=== PATIENT | male | born 1965 | race African-American/Black ===

== ENCOUNTER 2019-07-25 09:17 | Inpatient (IN) | payer MEDICARE, MEDICAID ==
[~2019-07-25] VITALS: Ht 172.7 cm; Wt 73.0 kg
[2019-07-25] MEDS ORDERED: METF-960 PO (09:24)
[2019-07-25] MEDS ORDERED: CARV6 PO (09:24)
[2019-07-25] MEDS ORDERED: LOSA-30 PO (09:24)
[2019-07-25] MEDS ORDERED: VANCOMYCIN HCL 1 GM/D5% WATER 200 ML IV ONE (10:15)
[2019-07-25] MEDS: PIPERACILLIN/TAZO 3.375 GM/D5W 50 ML IV SCH ×3 (10:41→22:37)
[2019-07-25 11:04] LABS: ANION GAP 8 mmol/L (8-16); CALCIUM, TOTAL 8.9 mg/dL (8.8-10.5); CARBON DIOXIDE 28 mmol/L (22-29); CHLORIDE 108 mmol/L (98-107); CREATININE 1.35 mg/dL (0.60-1.30); GLOMERULAR FILTR. RATE CALC > 60 mL/min (>60); GLUCOSE,RANDOM 119 mg/dL (70-110); POTASSIUM 3.6 mmol/L (3.5-5.1); SODIUM SERUM 144 mmol/L (136-145); UREA NITROGEN, BLOOD 16 mg/dL (7-18)
[2019-07-25 11:09] LABS: ALANINE AMINOTRANSFERASE 14 U/L (12-78); ALKALINE PHOSPHATASE 103 U/L (46-116); ASPARTATE AMINOTRANSFERASE 13 U/L (15-37); BILIRUBIN,TOTAL 0.3 mg/dL (0.1-1.0); TOTAL PROTEIN, SERUM 8.4 g/dL (6.4-8.2)
[2019-07-25 11:20] LABS: BASOPHILS % (AUTO) 0.5 % (0.0-2.0); EOSINOPHILS % (AUTO) 4.8 % (1.0-6.0); HEMATOCRIT 31.2 % (41-53); HEMOGLOBIN 10.1 g/dL (13.5-17.5); LYMPHOCYTES # (AUTO) 2.1 K/uL (1.0-4.8); LYMPHOCYTES % (AUTO) 22.7 % (22.0-44.0); MEAN CORPUSCULAR HEMOGLOBIN 28.2 pg (26.0-34.0); MEAN CORPUSCULAR HGB CONC 32.3 G/dL (31.0-37.0); MEAN CORPUSCULAR VOLUME 87 fL (80-100); MONOCYTES # (AUTO) 0.5 K/uL (0.1-1.0); MONOCYTES % (AUTO) 5.8 % (2.0-9.0); NEUTROPHILS % (AUTO) 66.2 % (40.0-70.0); PLATELET COUNT (AUTO) 407 K/uL (150-450); RED BLOOD CELL COUNT(AUTO) 3.57 MIL/uL (4.50-5.90); RED CELL DISTRIBUTION WIDTH 17.5 % (11.5-14.5)
[2019-07-25] MEDS ORDERED: LORazepam 2 MG/ML VIAL IVP ONE (12:30)
[2019-07-25] MEDS ORDERED: SODIUM CHLORIDE 0.9% 0 ML ONE (12:51)
[2019-07-25] MEDS ORDERED: IOVERSOL 320 MG/ML 100 ML VIAL ONE (12:51)
[2019-07-25] MEDS ORDERED: 0.9% SODIUM CHLORIDE 10 ML SYRINGE IVP PRN (13:45)
[2019-07-25] MEDS ORDERED: ONDANSETRON HCL 4 MG/2 ML VIAL IVP PRN ×2 (13:45)
[2019-07-25] MEDS ORDERED: ACETAMINOPHEN 325 MG TABLET PO PRN ×2 (13:45)
[2019-07-25 15:57] VITALS: BP 120/81
[2019-07-25] MEDS ORDERED: DEXTROSE 50%-WATER 25 GM/50 ML SYRINGE IVP PRN (17:45)
[2019-07-25] MEDS ORDERED: POTASSIUM CHLORIDE 20 MEQ ER TABLET PO ONE (17:45)
[2019-07-25 17:55] LABS: GLUCOMETER DEV NAME(LOC) 4E.2; GLUCOSE,POINT OF CARE 80 MG/DL (70-110)
[2019-07-25] MEDS: SODIUM CHLORIDE 0.45% 1,000 ML IV SCH (18:11)
[2019-07-25 18:28] VITALS: BP 120/81
[2019-07-25 19:25] VITALS: BP 104/63
[2019-07-25] MEDS: CARVEDILOL 6.25 MG TABLET PO SCH (21:09)
[2019-07-25] MEDS: INSULIN LISPRO 100 UNITS/ML SQ PRN (21:16)
[2019-07-25 22:08] LABS: GLUCOMETER DEV NAME(LOC) 6N.1; GLUCOSE,POINT OF CARE 159 MG/DL (70-110)
[2019-07-25 23:41] VITALS: BP 92/64
[2019-07-26 05:35] VITALS: BP 98/67
[2019-07-26] MEDS: SODIUM CHLORIDE 0.45% 1,000 ML IV SCH ×3 (05:59→21:54)
[2019-07-26 07:41] LABS: BASOPHILS % (AUTO) 0.7 % (0.0-2.0); EOSINOPHILS % (AUTO) 3.6 % (1.0-6.0); HEMATOCRIT 24.8 % (41-53); LYMPHOCYTES # (AUTO) 2.8 K/uL (1.0-4.8); LYMPHOCYTES % (AUTO) 36.5 % (22.0-44.0); MEAN CORPUSCULAR HEMOGLOBIN 27.8 pg (26.0-34.0); MEAN CORPUSCULAR HGB CONC 32.3 G/dL (31.0-37.0); MEAN CORPUSCULAR VOLUME 86 fL (80-100); MONOCYTES # (AUTO) 0.7 K/uL (0.1-1.0); MONOCYTES % (AUTO) 8.7 % (2.0-9.0); NEUTROPHILS # (AUTO) 3.9 K/uL (1.8-7.7); NEUTROPHILS % (AUTO) 50.5 % (40.0-70.0); PLATELET COUNT (AUTO) 316 K/uL (150-450); RED BLOOD CELL COUNT(AUTO) 2.87 MIL/uL (4.50-5.90); RED CELL DISTRIBUTION WIDTH 17.5 % (11.5-14.5)
[2019-07-26 07:52] LABS: ALBUMIN 1.6 g/dL (3.4-5.0); BILIRUBIN,TOTAL 0.3 mg/dL (0.1-1.0); CREATININE 2.08 mg/dL (0.60-1.30); POTASSIUM 4.3 mmol/L (3.5-5.1); TOTAL PROTEIN, SERUM 6.9 g/dL (6.4-8.2)
[2019-07-26] MEDS: CARVEDILOL 6.25 MG TABLET PO SCH ×2 (08:40→21:51)
[2019-07-26 08:52] VITALS: BP 100/64
[2019-07-26 11:37] LABS: GLUCOMETER DEV NAME(LOC) 6N.1; GLUCOSE,POINT OF CARE 86 MG/DL (70-110)
[2019-07-26 11:37] LABS: GLUCOMETER DEV NAME(LOC) 4E.2; GLUCOSE,POINT OF CARE 107 MG/DL (70-110)
[2019-07-26 12:00] VITALS: BP 98/65
[2019-07-26 17:47] VITALS: BP 113/73
[2019-07-26] MEDS: ALBUTEROL SULFATE 2.5 MG/0.5 ML NEB SOLUTION NEB PRN (17:47)
[2019-07-26 18:37] LABS: GLUCOMETER DEV NAME(LOC) 4E.2; GLUCOSE,POINT OF CARE 136 MG/DL (70-110)
[2019-07-26 19:00] VITALS: BP 110/69
[2019-07-26] MEDS: CefTRIAXone SODIUM 2 GM in DEXTROSE 5%-WATER 50 ML IV SCH (21:51)
[2019-07-26 22:17] LABS: GLUCOMETER DEV NAME(LOC) 4E.2; GLUCOSE,POINT OF CARE 163 MG/DL (70-110)
[2019-07-26 23:39] VITALS: BP 111/78
[2019-07-26] MEDS: TraZODone HCL 50 MG TABLET PO PRN (23:58)
[2019-07-26] MEDS: INSULIN LISPRO 100 UNITS/ML SQ PRN (23:59)
[2019-07-27] VITALS (7 sets, daily range): BP systolic 117–137; BP diastolic 68–87
[2019-07-27] MEDS ORDERED: TraZODone HCL 50 MG TABLET PO PRN
[2019-07-27] MEDS: ALBUTEROL SULFATE 2.5 MG/0.5 ML NEB SOLUTION NEB PRN (00:29)
[2019-07-27 02:43] LABS: ABG PCO2 35 mmHg (35-45); ABG PH 7.416 (7.35-7.450); PO2, ARTERIAL BG 62.8 mmHg (84.0-92.0); SITE, BLOOD GAS RT BRACHIAL; SOURCE, BLOOD GAS ART; TEMPERATURE, FAHRENHEIT, BG 98.5 FAHREN (96.0-98.6)
[2019-07-27 02:44] LABS: ABG BASE EXCESS -2.7 mmol/L (-2.0-3.0); ABG HCO3 22.4 mmol/L (22.0-26.0)
[2019-07-27 02:45] LABS: ABG CARBOXYHEMOGLOBIN 0.5 % (0.0-1.5); ABG METHEMOGLOBIN 0.3 % (0.0-1.5); ABG OXYGEN CONTENT 11.8 mL/dL (15.0-23.0); ABG OXYGEN SATURATION 91.7 % (95.0-98.0); ABG TOTAL HEMOGLOBIN 9.2 G/dL (12.0-18.0); O2 DEVICE,BLOOD GAS CANNULA (ROOM AIR)
[2019-07-27 05:23] LABS: BASOPHILS % (AUTO) 0.4 % (0.0-2.0); EOSINOPHILS % (AUTO) 1.9 % (1.0-6.0); HEMATOCRIT 28.7 % (41-53); HEMOGLOBIN 9.2 g/dL (13.5-17.5); LYMPHOCYTES # (AUTO) 1.8 K/uL (1.0-4.8); MEAN CORPUSCULAR HEMOGLOBIN 27.8 pg (26.0-34.0); MEAN CORPUSCULAR HGB CONC 32.1 G/dL (31.0-37.0); MEAN CORPUSCULAR VOLUME 87 fL (80-100); MONOCYTES # (AUTO) 0.5 K/uL (0.1-1.0); MONOCYTES % (AUTO) 5.3 % (2.0-9.0); NEUTROPHILS # (AUTO) 7.6 K/uL (1.8-7.7); NEUTROPHILS % (AUTO) 74.4 % (40.0-70.0); PLATELET COUNT (AUTO) 405 K/uL (150-450); RED BLOOD CELL COUNT(AUTO) 3.32 MIL/uL (4.50-5.90); RED CELL DISTRIBUTION WIDTH 17.3 % (11.5-14.5)
[2019-07-27] MEDS: SODIUM CHLORIDE 0.45% 1,000 ML IV SCH ×2 (05:28→23:54)
[2019-07-27 06:01] LABS: ALBUMIN 1.9 g/dL (3.4-5.0); BILIRUBIN,TOTAL 0.3 mg/dL (0.1-1.0); CALCIUM, TOTAL 8.5 mg/dL (8.8-10.5); CREATININE 2.17 mg/dL (0.60-1.30); TOTAL PROTEIN, SERUM 8.3 g/dL (6.4-8.2)
[2019-07-27 08:33] LABS: INR 1.2 (0.9-1.1); PROTHROMBIN TIME 11.7 SEC (9.4-11.6)
[2019-07-27] MEDS: CARVEDILOL 6.25 MG TABLET PO SCH ×2 (09:10→23:47)
[2019-07-27] MEDS ORDERED: ALBUTEROL SULFATE 2.5 MG/0.5 ML NEB SOLUTION NEB PRN (18:15)
[2019-07-27] MEDS ORDERED: IPRATROPIUM BROMIDE 0.5 MG/2.5 ML NEB SOLUTION NEB PRN (18:15)
[2019-07-27] MEDS: ASPIRIN 81 MG EC TABLET PO SCH (18:15)
[2019-07-27] MEDS: CefTRIAXone SODIUM 2 GM in DEXTROSE 5%-WATER 50 ML IV SCH (19:58)
[2019-07-27] MEDS: IPRATROPIUM BROMIDE 0.5 MG/2.5 ML NEB SOLUTION NEB SCH (22:24)
[2019-07-27] MEDS: ALBUTEROL SULFATE 2.5 MG/0.5 ML NEB SOLUTION NEB SCH (22:24)
[2019-07-28 00:11] VITALS: BP 114/72
[2019-07-28] MEDS: ALBUTEROL SULFATE 2.5 MG/0.5 ML NEB SOLUTION NEB SCH ×4 (02:00→20:45)
[2019-07-28] MEDS: IPRATROPIUM BROMIDE 0.5 MG/2.5 ML NEB SOLUTION NEB SCH ×4 (02:00→20:45)
[2019-07-28 04:29] VITALS: BP 103/61
[2019-07-28] MEDS: NITROGLYCERIN 2% (1 GM=INCH) PACKET TP SCH ×5 (05:15→23:50)
[2019-07-28 06:35] LABS: BASOPHILS % (AUTO) 0.5 % (0.0-2.0); HEMATOCRIT 23.2 % (41-53); HEMOGLOBIN 7.7 g/dL (13.5-17.5); LYMPHOCYTES # (AUTO) 2.2 K/uL (1.0-4.8); LYMPHOCYTES % (AUTO) 33.5 % (22.0-44.0); MEAN CORPUSCULAR HEMOGLOBIN 28.7 pg (26.0-34.0); MEAN CORPUSCULAR HGB CONC 33.2 G/dL (31.0-37.0); MEAN CORPUSCULAR VOLUME 87 fL (80-100); MONOCYTES # (AUTO) 0.5 K/uL (0.1-1.0); MONOCYTES % (AUTO) 7.3 % (2.0-9.0); NEUTROPHILS # (AUTO) 3.6 K/uL (1.8-7.7); NEUTROPHILS % (AUTO) 55.7 % (40.0-70.0); PLATELET COUNT (AUTO) 325 K/uL (150-450); RED BLOOD CELL COUNT(AUTO) 2.68 MIL/uL (4.50-5.90); RED CELL DISTRIBUTION WIDTH 17.3 % (11.5-14.5)
[2019-07-28 06:53] LABS: CALCIUM, TOTAL 8.2 mg/dL (8.8-10.5); CREATININE 1.64 mg/dL (0.60-1.30); MAGNESIUM 1.5 mg/dL (1.80-2.40); POTASSIUM 3.8 mmol/L (3.5-5.1)
[2019-07-28 08:26] VITALS: BP 119/77
[2019-07-28] MEDS: ASPIRIN 81 MG EC TABLET PO SCH (08:30)
[2019-07-28] MEDS: CARVEDILOL 6.25 MG TABLET PO SCH ×2 (08:30→20:54)
[2019-07-28 11:47] LABS: GLUCOMETER DEV NAME(LOC) 5S.2A; GLUCOSE,POINT OF CARE 131 MG/DL (70-110)
[2019-07-28 11:48] VITALS: BP 101/65
[2019-07-28 11:48] LABS: GLUCOMETER DEV NAME(LOC) 5S.2A; GLUCOSE,POINT OF CARE 108 MG/DL (70-110)
[2019-07-28 12:14] LABS: GLUCOMETER DEV NAME(LOC) 5S.2A; GLUCOSE,POINT OF CARE 128 MG/DL (70-110)
[2019-07-28] MEDS ORDERED: MAGNESIUM SULFATE 2 GM/WATER 50 ML IV PRN (12:15)
[2019-07-28] MEDS ORDERED: MAGNESIUM SULFATE 4 GM/WATER 100 ML IV PRN (12:15)
[2019-07-28] MEDS ORDERED: MAGNESIUM OXIDE 400 MG TABLET PO PRN (12:15)
[2019-07-28] MEDS ORDERED: LISINOPRIL 5 MG TABLET PO ONE (12:30)
[2019-07-28 16:43] VITALS: BP 119/85
[2019-07-28] MEDS: FUROSEMIDE 40 MG/4 ML VIAL IVP SCH (17:43)
[2019-07-28] MEDS: PIPERACILLIN/TAZO 3.375 GM/D5W 50 ML IV SCH ×2 (18:33→23:45)
[2019-07-28] MEDS ORDERED: VANCOMYCIN HCL 1.25 GM in DEXTROSE 5%-WATER 250 ML IV ONE (19:00)
[2019-07-28 19:51] LABS: GLUCOMETER DEV NAME(LOC) 5S.2A; GLUCOSE,POINT OF CARE 123 MG/DL (70-110)
[2019-07-28 20:50] VITALS: BP 123/80
[2019-07-28] MEDS: SODIUM CHLORIDE 0.45% 1,000 ML IV SCH (22:34)
[2019-07-29] VITALS (7 sets, daily range): BP systolic 104–129; BP diastolic 67–87
[2019-07-29] MEDS: IPRATROPIUM BROMIDE 0.5 MG/2.5 ML NEB SOLUTION NEB SCH ×4 (02:00→20:19)
[2019-07-29] MEDS: ALBUTEROL SULFATE 2.5 MG/0.5 ML NEB SOLUTION NEB SCH ×4 (02:00→20:19)
[2019-07-29 05:50] LABS: GLUCOSE,POINT OF CARE 97 MG/DL (70-110)
[2019-07-29] MEDS: NITROGLYCERIN 2% (1 GM=INCH) PACKET TP SCH ×4 (06:00→23:43)
[2019-07-29] MEDS: PIPERACILLIN/TAZO 3.375 GM/D5W 50 ML IV SCH ×4 (06:03→23:43)
[2019-07-29 06:15] LABS: GLUCOSE,POINT OF CARE 84 MG/DL (70-110)
[2019-07-29 06:16] LABS: GLUCOSE,POINT OF CARE 87 MG/DL (70-110)
[2019-07-29 06:38] LABS: BASOPHILS % (AUTO) 0.5 % (0.0-2.0); EOSINOPHILS % (AUTO) 3.5 % (1.0-6.0); HEMATOCRIT 26.3 % (41-53); HEMOGLOBIN 8.4 g/dL (13.5-17.5); LYMPHOCYTES # (AUTO) 2.1 K/uL (1.0-4.8); LYMPHOCYTES % (AUTO) 33.3 % (22.0-44.0); MEAN CORPUSCULAR HEMOGLOBIN 27.7 pg (26.0-34.0); MEAN CORPUSCULAR VOLUME 86 fL (80-100); MONOCYTES # (AUTO) 0.6 K/uL (0.1-1.0); MONOCYTES % (AUTO) 8.7 % (2.0-9.0); NEUTROPHILS # (AUTO) 3.5 K/uL (1.8-7.7); PLATELET COUNT (AUTO) 358 K/uL (150-450); RED BLOOD CELL COUNT(AUTO) 3.04 MIL/uL (4.50-5.90); RED CELL DISTRIBUTION WIDTH 17.5 % (11.5-14.5)
[2019-07-29] MEDS: VANCOMYCIN HCL 750 MG in DEXTROSE 5%-WATER 250 ML IV SCH ×2 (06:42→18:06)
[2019-07-29 06:53] LABS: ALBUMIN 1.7 g/dL (3.4-5.0); BILIRUBIN,TOTAL 0.2 mg/dL (0.1-1.0); CALCIUM, TOTAL 8.5 mg/dL (8.8-10.5); CREATININE 1.97 mg/dL (0.60-1.30); POTASSIUM 3.8 mmol/L (3.5-5.1); TOTAL PROTEIN, SERUM 7.5 g/dL (6.4-8.2)
[2019-07-29] MEDS: FUROSEMIDE 40 MG/4 ML VIAL IVP SCH (08:01)
[2019-07-29] MEDS: ASPIRIN 81 MG EC TABLET PO SCH (08:01)
[2019-07-29] MEDS: LACTOBAC ACID/BULG/BIFID/THERM TABLET PO SCH (08:01)
[2019-07-29] MEDS: CARVEDILOL 6.25 MG TABLET PO SCH ×2 (08:01→20:56)
[2019-07-29 08:29] LABS: GLUCOMETER DEV NAME(LOC) 5S.2A; GLUCOSE,POINT OF CARE 105 MG/DL (70-110)
[2019-07-29 11:29] LABS: GLUCOMETER DEV NAME(LOC) 5N.2; GLUCOSE,POINT OF CARE 125 MG/DL (70-110)
[2019-07-29] MEDS: INSULIN LISPRO 100 UNITS/ML SQ PRN ×2 (11:42→17:49)
[2019-07-29] MEDS ORDERED: SODIUM CL IRRIG SOLN BOTTLE 250 ML IRRIG ONE (12:22)
[2019-07-29] MEDS: SODIUM CHLORIDE 0.45% 1,000 ML IV SCH (16:16)
[2019-07-29 16:38] LABS: GLUCOMETER DEV NAME(LOC) 5S.2A; GLUCOSE,POINT OF CARE 141 MG/DL (70-110)
[2019-07-29 16:38] LABS: GLUCOMETER DEV NAME(LOC) 5S.2A; GLUCOSE,POINT OF CARE 163 MG/DL (70-110)
[2019-07-30] VITALS (16 sets, daily range): BP systolic 83–147; BP diastolic 54–100
[2019-07-30] MEDS: ALBUTEROL SULFATE 2.5 MG/0.5 ML NEB SOLUTION NEB SCH ×3 (02:00→20:00)
[2019-07-30] MEDS: IPRATROPIUM BROMIDE 0.5 MG/2.5 ML NEB SOLUTION NEB SCH ×3 (02:00→20:00)
[2019-07-30] MEDS: NITROGLYCERIN 2% (1 GM=INCH) PACKET TP SCH ×4 (06:00→23:46)
[2019-07-30] MEDS: PIPERACILLIN/TAZO 3.375 GM/D5W 50 ML IV SCH ×5 (06:09→23:46)
[2019-07-30 06:21] LABS: GLUCOMETER DEV NAME(LOC) 5S.2A; GLUCOSE,POINT OF CARE 152 MG/DL (70-110)
[2019-07-30 06:22] LABS: GLUCOMETER DEV NAME(LOC) 5S.2A; GLUCOSE,POINT OF CARE 138 MG/DL (70-110)
[2019-07-30] MEDS: VANCOMYCIN HCL 750 MG in DEXTROSE 5%-WATER 250 ML IV SCH (06:41)
[2019-07-30 06:52] LABS: EOSINOPHILS % (AUTO) 3.1 % (1.0-6.0); HEMATOCRIT 26.2 % (41-53); HEMOGLOBIN 8.4 g/dL (13.5-17.5); LYMPHOCYTES # (AUTO) 1.8 K/uL (1.0-4.8); LYMPHOCYTES % (AUTO) 23.8 % (22.0-44.0); MEAN CORPUSCULAR HEMOGLOBIN 27.8 pg (26.0-34.0); MEAN CORPUSCULAR VOLUME 87 fL (80-100); MONOCYTES # (AUTO) 0.7 K/uL (0.1-1.0); MONOCYTES % (AUTO) 8.6 % (2.0-9.0); NEUTROPHILS # (AUTO) 4.8 K/uL (1.8-7.7); NEUTROPHILS % (AUTO) 63.5 % (40.0-70.0); PLATELET COUNT (AUTO) 419 K/uL (150-450); RED BLOOD CELL COUNT(AUTO) 3.03 MIL/uL (4.50-5.90); RED CELL DISTRIBUTION WIDTH 17.3 % (11.5-14.5)
[2019-07-30 07:25] LABS: CALCIUM, TOTAL 8.6 mg/dL (8.8-10.5); CREATININE 2.11 mg/dL (0.60-1.30); POTASSIUM 3.7 mmol/L (3.5-5.1)
[2019-07-30 07:42] LABS: INR 1.1 (0.9-1.1); PROTHROMBIN TIME 11.3 SEC (9.4-11.6)
[2019-07-30] MEDS: LACTOBAC ACID/BULG/BIFID/THERM TABLET PO SCH (08:28)
[2019-07-30] MEDS: FUROSEMIDE 40 MG/4 ML VIAL IVP SCH (08:28)
[2019-07-30] MEDS: ASPIRIN 81 MG EC TABLET PO SCH (08:29)
[2019-07-30] MEDS: CARVEDILOL 6.25 MG TABLET PO SCH ×2 (08:29→21:21)
[2019-07-30] MEDS ORDERED: SODIUM BICARBONATE 50 MEQ/50 ML VIAL ONE (08:33)
[2019-07-30] MEDS ORDERED: IOHEXOL 300 MG/ML 150 ML VIAL ONE (08:33)
[2019-07-30] MEDS ORDERED: LIDOCAINE/PF 1% 30 ML VIAL ONE (08:33)
[2019-07-30] MEDS ORDERED: HEPARIN SODIUM 1000 UNITS/NS 1,000 ML ONE (08:34)
[2019-07-30] MEDS ORDERED: FentaNYL CITRATE-PF 100 MCG/2 ML VIAL ONE (09:19)
[2019-07-30] MEDS ORDERED: MIDAZOLAM HCL 2 MG/2 ML VIAL ONE (09:19)
[2019-07-30] MEDS ORDERED: HEPARIN SODIUM 2,000 UNITS in HEPARIN SODIUM 1000 UNITS/NS 1,000 ML IARTER ONE (09:27)
[2019-07-30] MEDS ORDERED: IOHEXOL 300 MG/ML 150 ML VIAL IARTER ONE (09:30)
[2019-07-30] MEDS ORDERED: MIDAZOLAM HCL 2 MG/2 ML VIAL IVP ONE (09:30)
[2019-07-30] MEDS ORDERED: SODIUM BICARBONATE 150 MEQ in DEXTROSE 5%-WATER 850 ML IV ONE (09:30)
[2019-07-30] MEDS ORDERED: LIDOCAINE 1% 30 ML/SOD BICARB 8.4% 4 ML SQ ONE (09:30)
[2019-07-30] MEDS ORDERED: FentaNYL CITRATE-PF 100 MCG/2 ML VIAL IVP ONE (09:30)
[2019-07-30] MEDS ORDERED: IOHEXOL 300 MG/ML 100 ML VIAL ONE ×2 (09:36→09:39)
[2019-07-30] MEDS ORDERED: IOHEXOL 300 MG/ML 50 ML VIAL ONE (09:36)
[2019-07-30] MEDS ORDERED: TICAGRELOR 90 MG TABLET ONE (09:36)
[2019-07-30] MEDS ORDERED: ASPIRIN 325 MG TABLET ONE (09:36)
[2019-07-30] MEDS ORDERED: NITROGLYCERIN 50 MG/D5% WATER 0 ML ONE (09:50)
[2019-07-30] MEDS ORDERED: VERAPAMIL HCL 2.5 MG/ML 2 ML VIAL ONE (09:50)
[2019-07-30] MEDS ORDERED: IOHEXOL 300 MG/ML 100 ML VIAL IARTER ONE (10:00)
[2019-07-30] MEDS ORDERED: ASPIRIN 325 MG TABLET PO ONE (10:00)
[2019-07-30] MEDS ORDERED: TICAGRELOR 90 MG TABLET PO ONE (10:00)
[2019-07-30] MEDS ORDERED: HEPARIN SODIUM,PORCINE 5,000 UNITS/ML VIAL IVP ONE ×3 (10:15→10:30)
[2019-07-30] MEDS ORDERED: SODIUM CHLORIDE 0.9% 250 ML IV ONE (15:34)
[2019-07-30] MEDS: INSULIN LISPRO 100 UNITS/ML SQ PRN (17:40)
[2019-07-30] MEDS ORDERED: VANCOMYCIN HCL 500 MG in DEXTROSE 5%-WATER 100 ML IV ONE (20:00)
[2019-07-30] MEDS: TICAGRELOR 90 MG TABLET PO SCH (21:21)
[2019-07-30 21:44] LABS: GLUCOSE,POINT OF CARE 139 MG/DL (70-110)
[2019-07-30 21:44] LABS: GLUCOSE,POINT OF CARE 118 MG/DL (70-110)
[2019-07-31] VITALS (12 sets, daily range): BP systolic 120–147; BP diastolic 70–99
[2019-07-31] MEDS: ALBUTEROL SULFATE 2.5 MG/0.5 ML NEB SOLUTION NEB SCH ×4 (02:00→19:31)
[2019-07-31] MEDS: IPRATROPIUM BROMIDE 0.5 MG/2.5 ML NEB SOLUTION NEB SCH ×4 (02:00→19:31)
[2019-07-31 05:08] LABS: BAND NEUTROPHILS % (MANUAL) 0 % (0-5)
[2019-07-31 05:12] LABS: HEMATOCRIT 26.5 % (41-53); HEMOGLOBIN 8.6 g/dL (13.5-17.5); MEAN CORPUSCULAR HGB CONC 32.5 G/dL (31.0-37.0); MEAN CORPUSCULAR VOLUME 86 fL (80-100); PLATELET COUNT (AUTO) 397 K/uL (150-450); RED BLOOD CELL COUNT(AUTO) 3.08 MIL/uL (4.50-5.90); RED CELL DISTRIBUTION WIDTH 17.5 % (11.5-14.5)
[2019-07-31 05:27] LABS: % IRON SATURATION 18.7 % (30-44)
[2019-07-31 05:42] LABS: EOSINOPHILS % (MANUAL) 3 % (1-6); LYMPHOCYTES % (MANUAL) 24 % (22-44); MONOCYTES % (MANUAL) 5 % (2-9); SEGMENTED NEUTROPHILS % 68 % (40-70)
[2019-07-31 05:54] LABS: CREATININE 1.73 mg/dL (0.60-1.30); MAGNESIUM 1.4 mg/dL (1.80-2.40); PHOSPHORUS 2.3 mg/dL (2.5-4.9); POTASSIUM 3.3 mmol/L (3.5-5.1)
[2019-07-31] MEDS: NITROGLYCERIN 2% (1 GM=INCH) PACKET TP SCH ×3 (06:30→17:09)
[2019-07-31] MEDS: PIPERACILLIN/TAZO 3.375 GM/D5W 50 ML IV SCH ×3 (06:31→17:09)
[2019-07-31] MEDS: INSULIN LISPRO 100 UNITS/ML SQ PRN ×4 (06:42→22:34)
[2019-07-31 07:13] LABS: GLUCOSE,POINT OF CARE 153 MG/DL (70-110)
[2019-07-31 07:13] LABS: GLUCOSE,POINT OF CARE 157 MG/DL (70-110)
[2019-07-31] MEDS ORDERED: VANCOMYCIN HCL 1.25 GM in DEXTROSE 5%-WATER 250 ML IV SCH (08:00)
[2019-07-31] MEDS: ASPIRIN 81 MG CHEWABLE TABLET PO SCH (08:06)
[2019-07-31] MEDS: EPOETIN ALFA 10,000 UNITS/ML VIAL SQ SCH (08:06)
[2019-07-31] MEDS: TICAGRELOR 90 MG TABLET PO SCH ×2 (08:06→20:00)
[2019-07-31] MEDS: CARVEDILOL 6.25 MG TABLET PO SCH ×2 (08:06→20:00)
[2019-07-31] MEDS: LACTOBAC ACID/BULG/BIFID/THERM TABLET PO SCH (08:06)
[2019-07-31] MEDS ORDERED: POTASSIUM CHLORIDE 10% 40 MEQ/30 ML LIQUID UDCUP PO ONE (09:15)
[2019-07-31] MEDS ORDERED: MAGNESIUM SULFATE 2 GM/WATER 50 ML IV ONE (10:00)
[2019-07-31] MEDS: SOD FERRIC GLUC COMPLX/SUCROSE 125 MG in SODIUM CHLORIDE 0.9% 100 ML IV SCH (13:19)
[2019-07-31 14:06] LABS: GLUCOSE,POINT OF CARE 144 MG/DL (70-110)
[2019-07-31 15:55] LABS: CALCIUM, TOTAL 8.3 mg/dL (8.8-10.5); CREATININE 1.71 mg/dL (0.60-1.30); MAGNESIUM 2.1 mg/dL (1.80-2.40); POTASSIUM 3.6 mmol/L (3.5-5.1)
[2019-07-31] MEDS ORDERED: SODIUM CHLORIDE 0.9% 250 ML IV ONE (17:18)
[2019-07-31 18:46] LABS: GLUCOSE,POINT OF CARE 155 MG/DL (70-110)
[2019-08-01] VITALS (9 sets, daily range): BP systolic 113–140; BP diastolic 18–84
[2019-08-01] MEDS ORDERED: SODIUM CHLORIDE 0.9% 250 ML IV ONE (00:25)
[2019-08-01] MEDS: NITROGLYCERIN 2% (1 GM=INCH) PACKET TP SCH ×5 (00:34→23:00)
[2019-08-01] MEDS: PIPERACILLIN/TAZO 3.375 GM/D5W 50 ML IV SCH ×5 (00:34→23:00)
[2019-08-01 01:13] LABS: GLUCOMETER DEV NAME(LOC) 5S.2A; GLUCOSE,POINT OF CARE 128 MG/DL (70-110)
[2019-08-01] MEDS: ALBUTEROL SULFATE 2.5 MG/0.5 ML NEB SOLUTION NEB SCH ×4 (02:00→20:00)
[2019-08-01] MEDS: IPRATROPIUM BROMIDE 0.5 MG/2.5 ML NEB SOLUTION NEB SCH ×4 (02:00→20:00)
[2019-08-01 06:05] LABS: GLUCOMETER DEV NAME(LOC) 5N.2; GLUCOSE,POINT OF CARE 126 MG/DL (70-110)
[2019-08-01] MEDS: INSULIN LISPRO 100 UNITS/ML SQ PRN ×2 (06:45→20:47)
[2019-08-01 07:15] LABS: BASOPHILS % (AUTO) 0.7 % (0.0-2.0); EOSINOPHILS % (AUTO) 2.6 % (1.0-6.0); HEMATOCRIT 24.3 % (41-53); HEMOGLOBIN 7.7 g/dL (13.5-17.5); LYMPHOCYTES # (AUTO) 2.1 K/uL (1.0-4.8); LYMPHOCYTES % (AUTO) 24.8 % (22.0-44.0); MEAN CORPUSCULAR HEMOGLOBIN 27.9 pg (26.0-34.0); MEAN CORPUSCULAR HGB CONC 31.9 G/dL (31.0-37.0); MEAN CORPUSCULAR VOLUME 87 fL (80-100); MONOCYTES # (AUTO) 0.8 K/uL (0.1-1.0); MONOCYTES % (AUTO) 9.2 % (2.0-9.0); NEUTROPHILS # (AUTO) 5.2 K/uL (1.8-7.7); NEUTROPHILS % (AUTO) 62.7 % (40.0-70.0); PLATELET COUNT (AUTO) 354 K/uL (150-450); RED BLOOD CELL COUNT(AUTO) 2.78 MIL/uL (4.50-5.90); RED CELL DISTRIBUTION WIDTH 17.6 % (11.5-14.5)
[2019-08-01 07:34] LABS: ALBUMIN 1.5 g/dL (3.4-5.0); BILIRUBIN,TOTAL 0.2 mg/dL (0.1-1.0); CALCIUM, TOTAL 7.9 mg/dL (8.8-10.5); CREATININE 1.5 mg/dL (0.60-1.30); MAGNESIUM 1.7 mg/dL (1.80-2.40); PHOSPHORUS 2.2 mg/dL (2.5-4.9); POTASSIUM 3.7 mmol/L (3.5-5.1); TOTAL PROTEIN, SERUM 6.6 g/dL (6.4-8.2)
[2019-08-01] MEDS: LACTOBAC ACID/BULG/BIFID/THERM TABLET PO SCH (09:39)
[2019-08-01] MEDS: CARVEDILOL 6.25 MG TABLET PO SCH ×2 (09:39→20:26)
[2019-08-01] MEDS: TICAGRELOR 90 MG TABLET PO SCH ×2 (09:39→20:26)
[2019-08-01] MEDS: ASPIRIN 81 MG CHEWABLE TABLET PO SCH (09:39)
[2019-08-01] MEDS: SOD FERRIC GLUC COMPLX/SUCROSE 125 MG in SODIUM CHLORIDE 0.9% 100 ML IV SCH (11:52)
[2019-08-01 12:05] LABS: APPEARANCE,URINE CLEAR (CLEAR); BILIRUBIN,URINE NEGATIVE (NEGATIVE); GLUCOSE, URINE (UA) NEGATIVE (NEGATIVE); KETONES,URINE NEGATIVE (NEGATIVE); LEUKOCYTE ESTERASE ,URINE SMALL (NEGATIVE); NITRATE,URINE NEGATIVE (NEGATIVE); OCCULT BLOOD,URINE LARGE (NEGATIVE); PH,URINE 5.5 (5.0-8.0); PROTEIN,URINE SEE CONFIRM (NEGATIVE); UROBILINOGEN,URINE 0.2 mg/dL (<=1.0)
[2019-08-01 12:15] LABS: SULFOSALICYLIC ACID,URINE 1+ (Negative)
[2019-08-01 12:17] LABS: BACTERIA,URINE None Seen /HPF (None Seen); SQUAMOUS EPITHELIAL CELL,UR Few /LPF (None Seen); WBC,URINE 0-2 /HPF (0-5); YEAST,URINE Few /HPF (None Seen)
[2019-08-01 12:27] LABS: SODIUM,URINE RANDOM 65 mmol/l (20-110); UREA NITROGEN,URINE RANDOM 414 mg/dL (350-1000)
[2019-08-01] MEDS ORDERED: SODIUM CHLORIDE 3% 15 ML NEB SOLUTION NEB ONE (14:01)
[2019-08-01 20:25] LABS: GLUCOMETER DEV NAME(LOC) 5S.2A; GLUCOSE,POINT OF CARE 134 MG/DL (70-110)
[2019-08-02] MEDS: IPRATROPIUM BROMIDE 0.5 MG/2.5 ML NEB SOLUTION NEB SCH ×4 (02:00→20:17)
[2019-08-02] MEDS: ALBUTEROL SULFATE 2.5 MG/0.5 ML NEB SOLUTION NEB SCH ×4 (02:00→20:17)
[2019-08-02] MEDS: PIPERACILLIN/TAZO 3.375 GM/D5W 50 ML IV SCH ×3 (05:23→18:03)
[2019-08-02] MEDS: NITROGLYCERIN 2% (1 GM=INCH) PACKET TP SCH ×3 (05:23→18:03)
[2019-08-02] MEDS: INSULIN LISPRO 100 UNITS/ML SQ PRN ×3 (05:30→18:08)
[2019-08-02 05:34] VITALS: BP 100/66
[2019-08-02 07:24] VITALS: BP 121/59
[2019-08-02 07:34] LABS: CALCIUM, TOTAL 8.1 mg/dL (8.8-10.5); CREATININE 1.47 mg/dL (0.60-1.30); POTASSIUM 3.6 mmol/L (3.5-5.1)
[2019-08-02] MEDS: ASPIRIN 81 MG CHEWABLE TABLET PO SCH (08:19)
[2019-08-02] MEDS: LACTOBAC ACID/BULG/BIFID/THERM TABLET PO SCH (08:19)
[2019-08-02] MEDS: TICAGRELOR 90 MG TABLET PO SCH ×2 (08:20→20:56)
[2019-08-02] MEDS: CARVEDILOL 6.25 MG TABLET PO SCH ×2 (08:20→20:57)
[2019-08-02] MEDS ORDERED: SODIUM CHLORIDE 0.9% 250 ML IV ONE (08:33)
[2019-08-02 11:24] VITALS: BP 128/81
[2019-08-02] MEDS: SOD FERRIC GLUC COMPLX/SUCROSE 125 MG in SODIUM CHLORIDE 0.9% 100 ML IV SCH (11:55)
[2019-08-02 16:29] VITALS: BP 130/79
[2019-08-02 19:25] VITALS: BP 124/89
[2019-08-02 19:31] LABS: GLUCOMETER DEV NAME(LOC) 5N.2; GLUCOSE,POINT OF CARE 111 MG/DL (70-110)
[2019-08-02 19:31] LABS: GLUCOMETER DEV NAME(LOC) 5S.2A; GLUCOSE,POINT OF CARE 144 MG/DL (70-110)
[2019-08-02 19:31] LABS: GLUCOMETER DEV NAME(LOC) 5N.2; GLUCOSE,POINT OF CARE 182 MG/DL (70-110)
[2019-08-02 19:31] LABS: GLUCOMETER DEV NAME(LOC) 5S.2A; GLUCOSE,POINT OF CARE 151 MG/DL (70-110)
[2019-08-02 23:46] VITALS: BP 117/63
[2019-08-03] MEDS: NITROGLYCERIN 2% (1 GM=INCH) PACKET TP SCH ×4 (00:44→17:24)
[2019-08-03] MEDS: PIPERACILLIN/TAZO 3.375 GM/D5W 50 ML IV SCH ×4 (00:45→17:24)
[2019-08-03] MEDS: IPRATROPIUM BROMIDE 0.5 MG/2.5 ML NEB SOLUTION NEB SCH ×4 (02:00→20:42)
[2019-08-03] MEDS: ALBUTEROL SULFATE 2.5 MG/0.5 ML NEB SOLUTION NEB SCH ×4 (02:00→20:42)
[2019-08-03 03:39] VITALS: BP 129/78
[2019-08-03 06:47] LABS: BASOPHILS % (AUTO) 0.8 % (0.0-2.0); EOSINOPHILS % (AUTO) 3.4 % (1.0-6.0); HEMATOCRIT 21.1 % (41-53); HEMOGLOBIN 7.1 g/dL (13.5-17.5); LYMPHOCYTES % (AUTO) 24.2 % (22.0-44.0); MEAN CORPUSCULAR HEMOGLOBIN 29.3 pg (26.0-34.0); MEAN CORPUSCULAR HGB CONC 33.6 G/dL (31.0-37.0); MEAN CORPUSCULAR VOLUME 87 fL (80-100); MONOCYTES # (AUTO) 0.6 K/uL (0.1-1.0); MONOCYTES % (AUTO) 7.3 % (2.0-9.0); NEUTROPHILS # (AUTO) 5.4 K/uL (1.8-7.7); NEUTROPHILS % (AUTO) 64.3 % (40.0-70.0); PLATELET COUNT (AUTO) 277 K/uL (150-450); RED BLOOD CELL COUNT(AUTO) 2.42 MIL/uL (4.50-5.90); RED CELL DISTRIBUTION WIDTH 17.7 % (11.5-14.5)
[2019-08-03 07:05] LABS: GLUCOMETER DEV NAME(LOC) 5S.2A; GLUCOSE,POINT OF CARE 158 MG/DL (70-110)
[2019-08-03 07:05] LABS: GLUCOMETER DEV NAME(LOC) 5S.2A; GLUCOSE,POINT OF CARE 134 MG/DL (70-110)
[2019-08-03 07:13] LABS: CREATININE 1.53 mg/dL (0.60-1.30); POTASSIUM 3.8 mmol/L (3.5-5.1)
[2019-08-03 07:46] VITALS: BP 128/75
[2019-08-03] MEDS: MULTIVITAMINS WITH MINERALS, THERAPEUTIC TABLET PO SCH (09:46)
[2019-08-03] MEDS: TICAGRELOR 90 MG TABLET PO SCH ×2 (09:46→20:55)
[2019-08-03] MEDS: ASPIRIN 81 MG CHEWABLE TABLET PO SCH (09:46)
[2019-08-03] MEDS: CARVEDILOL 6.25 MG TABLET PO SCH ×2 (09:46→20:55)
[2019-08-03] MEDS: LACTOBAC ACID/BULG/BIFID/THERM TABLET PO SCH (09:46)
[2019-08-03] MEDS: EPOETIN ALFA 10,000 UNITS/ML VIAL SQ SCH (09:47)
[2019-08-03 11:18] VITALS: BP 135/78
[2019-08-03] MEDS: SOD FERRIC GLUC COMPLX/SUCROSE 125 MG in SODIUM CHLORIDE 0.9% 100 ML IV SCH (11:33)
[2019-08-03 13:55] VITALS: BP 132/66
[2019-08-03 16:59] LABS: C-REACTIVE PROTEIN QUANT 2.28 mg/dL (0.00-0.30)
[2019-08-03] MEDS: LEVOFLOXACIN 250 MG TABLET PO SCH (17:25)
[2019-08-03] MEDS: INSULIN LISPRO 100 UNITS/ML SQ PRN ×2 (17:26→20:56)
[2019-08-03 19:35] VITALS: BP 102/62
[2019-08-04] VITALS (11 sets, daily range): BP systolic 111–134; BP diastolic 62–76
[2019-08-04] MEDS: PIPERACILLIN/TAZO 3.375 GM/D5W 50 ML IV SCH ×4 (00:45→18:11)
[2019-08-04] MEDS: IPRATROPIUM BROMIDE 0.5 MG/2.5 ML NEB SOLUTION NEB SCH ×4 (02:00→21:22)
[2019-08-04] MEDS: ALBUTEROL SULFATE 2.5 MG/0.5 ML NEB SOLUTION NEB SCH ×4 (02:00→21:22)
[2019-08-04] MEDS: NITROGLYCERIN 2% (1 GM=INCH) PACKET TP SCH ×4 (06:00→18:11)
[2019-08-04 07:02] LABS: BASOPHILS % (AUTO) 0.6 % (0.0-2.0); EOSINOPHILS % (AUTO) 3.7 % (1.0-6.0); LYMPHOCYTES # (AUTO) 2.1 K/uL (1.0-4.8); LYMPHOCYTES % (AUTO) 24.3 % (22.0-44.0); MEAN CORPUSCULAR HEMOGLOBIN 30.3 pg (26.0-34.0); MEAN CORPUSCULAR HGB CONC 34.1 G/dL (31.0-37.0); MEAN CORPUSCULAR VOLUME 89 fL (80-100); MONOCYTES # (AUTO) 0.6 K/uL (0.1-1.0); MONOCYTES % (AUTO) 7.1 % (2.0-9.0); NEUTROPHILS # (AUTO) 5.7 K/uL (1.8-7.7); NEUTROPHILS % (AUTO) 64.3 % (40.0-70.0); PLATELET COUNT (AUTO) 265 K/uL (150-450); RED BLOOD CELL COUNT(AUTO) 1.96 MIL/uL (4.50-5.90)
[2019-08-04 07:04] LABS: HEMATOCRIT 17.4 % (41-53); HEMOGLOBIN 5.9 g/dL (13.5-17.5)
[2019-08-04 07:07] LABS: ALBUMIN 1.6 g/dL (3.4-5.0); ANION GAP 4 mmol/L (8-16); CALCIUM, TOTAL 8.4 mg/dL (8.8-10.5); CARBON DIOXIDE 33 mmol/L (22-29); CHLORIDE 106 mmol/L (98-107); CREATININE 1.38 mg/dL (0.60-1.30); GLOMERULAR FILTR. RATE CALC > 60 mL/min (>60); GLUCOSE,RANDOM 118 mg/dL (70-110); PHOSPHORUS 2.1 mg/dL (2.5-4.9); SODIUM SERUM 143 mmol/L (136-145); UREA NITROGEN, BLOOD 32 mg/dL (7-18)
[2019-08-04 07:28] LABS: GLUCOMETER DEV NAME(LOC) 5N.2; GLUCOSE,POINT OF CARE 115 MG/DL (70-110)
[2019-08-04] MEDS: LACTOBAC ACID/BULG/BIFID/THERM TABLET PO SCH ×2 (08:08→21:45)
[2019-08-04] MEDS: ASPIRIN 81 MG CHEWABLE TABLET PO SCH (08:08)
[2019-08-04] MEDS: TICAGRELOR 90 MG TABLET PO SCH ×2 (08:09→21:46)
[2019-08-04] MEDS: MULTIVITAMINS WITH MINERALS, THERAPEUTIC TABLET PO SCH (08:09)
[2019-08-04] MEDS: LEVOFLOXACIN 250 MG TABLET PO SCH (08:09)
[2019-08-04] MEDS: CARVEDILOL 6.25 MG TABLET PO SCH ×2 (08:09→21:47)
[2019-08-04] MEDS ORDERED: MAGNESIUM SULFATE 3 GM in DEXTROSE 5%-WATER 100 ML IV ONE (09:00)
[2019-08-04] MEDS ORDERED: SODIUM CHLORIDE 0.9% 250 ML IV ONE (10:38)
[2019-08-04] MEDS: SOD FERRIC GLUC COMPLX/SUCROSE 125 MG in SODIUM CHLORIDE 0.9% 100 ML IV SCH (11:00)
[2019-08-04] MEDS ORDERED: FUROSEMIDE 20 MG/2 ML VIAL IVP ONE (11:30)
[2019-08-04] MEDS: POTASSIUM PHOS/SODIUM PHOS MIXTURE 1 POWDER PACKET PO SCH ×2 (11:50→21:46)
[2019-08-04 12:27] LABS: GLUCOMETER DEV NAME(LOC) 5S.2A; GLUCOSE,POINT OF CARE 116 MG/DL (70-110)
[2019-08-04 12:27] LABS: GLUCOMETER DEV NAME(LOC) 5S.2A; GLUCOSE,POINT OF CARE 194 MG/DL (70-110)
[2019-08-04 12:27] LABS: GLUCOMETER DEV NAME(LOC) 5S.2A; GLUCOSE,POINT OF CARE 115 MG/DL (70-110)
[2019-08-04 12:27] LABS: GLUCOMETER DEV NAME(LOC) 5S.2A; GLUCOSE,POINT OF CARE 167 MG/DL (70-110)
[2019-08-04] MEDS ORDERED: FUROSEMIDE 40 MG/4 ML VIAL IVP ONE (15:00)
[2019-08-04] MEDS: PANTOPRAZOLE SODIUM 40 MG/VIAL IVP SCH ×2 (16:18→21:47)
[2019-08-04] MEDS ORDERED: SODIUM CHLORIDE 0.9% 1,000 ML ONE (21:43)
[2019-08-05] VITALS (9 sets, daily range): BP systolic 93–130; BP diastolic 61–80
[2019-08-05] MEDS: PIPERACILLIN/TAZO 3.375 GM/D5W 50 ML IV SCH ×5 (00:23→23:24)
[2019-08-05] MEDS: TraZODone HCL 50 MG TABLET PO PRN (00:23)
[2019-08-05] MEDS ORDERED: SODIUM CHLORIDE 0.9% 100 ML ONE (00:25)
[2019-08-05] MEDS: ALBUTEROL SULFATE 2.5 MG/0.5 ML NEB SOLUTION NEB SCH ×4 (02:00→19:56)
[2019-08-05] MEDS: IPRATROPIUM BROMIDE 0.5 MG/2.5 ML NEB SOLUTION NEB SCH ×4 (02:00→19:56)
[2019-08-05] MEDS: NITROGLYCERIN 2% (1 GM=INCH) PACKET TP SCH ×5 (05:56→23:26)
[2019-08-05 06:31] LABS: BASOPHILS % (AUTO) 0.8 % (0.0-2.0); HEMATOCRIT 27.3 % (41-53); HEMOGLOBIN 9.2 g/dL (13.5-17.5); LYMPHOCYTES % (AUTO) 21.3 % (22.0-44.0); MEAN CORPUSCULAR HEMOGLOBIN 29.4 pg (26.0-34.0); MEAN CORPUSCULAR HGB CONC 33.5 G/dL (31.0-37.0); MEAN CORPUSCULAR VOLUME 88 fL (80-100); MONOCYTES # (AUTO) 0.7 K/uL (0.1-1.0); MONOCYTES % (AUTO) 6.8 % (2.0-9.0); NEUTROPHILS # (AUTO) 6.5 K/uL (1.8-7.7); NEUTROPHILS % (AUTO) 67.1 % (40.0-70.0); PLATELET COUNT (AUTO) 263 K/uL (150-450); RED BLOOD CELL COUNT(AUTO) 3.12 MIL/uL (4.50-5.90); RED CELL DISTRIBUTION WIDTH 16.4 % (11.5-14.5)
[2019-08-05 06:41] LABS: CALCIUM, TOTAL 8.9 mg/dL (8.8-10.5); CREATININE 1.78 mg/dL (0.60-1.30); MAGNESIUM 2.1 mg/dL (1.80-2.40); POTASSIUM 3.6 mmol/L (3.5-5.1)
[2019-08-05] MEDS ORDERED: SODIUM CHLORIDE 0.9% 1,000 ML ONE (07:23)
[2019-08-05 09:05] LABS: GLUCOMETER DEV NAME(LOC) 5N.2; GLUCOSE,POINT OF CARE 122 MG/DL (70-110)
[2019-08-05] MEDS: PANTOPRAZOLE SODIUM 40 MG DR TABLET PO SCH (10:07)
[2019-08-05] MEDS: MULTIVITAMINS WITH MINERALS, THERAPEUTIC TABLET PO SCH (10:07)
[2019-08-05] MEDS: CARVEDILOL 6.25 MG TABLET PO SCH ×2 (10:07→21:12)
[2019-08-05] MEDS: LEVOFLOXACIN 250 MG TABLET PO SCH (10:08)
[2019-08-05] MEDS: LACTOBAC ACID/BULG/BIFID/THERM TABLET PO SCH ×2 (10:08→21:12)
[2019-08-05] MEDS: EPOETIN ALFA 10,000 UNITS/ML VIAL SQ SCH (10:12)
[2019-08-05] MEDS ORDERED: LIDOCAINE 1% 10 ML VIAL INJ ONE (12:00)
[2019-08-05] MEDS ORDERED: PROPOFOL 1% 20 ML VIAL IVP ONE (12:00)
[2019-08-05] MEDS: SOD FERRIC GLUC COMPLX/SUCROSE 125 MG in SODIUM CHLORIDE 0.9% 100 ML IV SCH (12:17)
[2019-08-05] MEDS: ASPIRIN 81 MG CHEWABLE TABLET PO SCH (12:34)
[2019-08-05] MEDS: TICAGRELOR 90 MG TABLET PO SCH ×2 (12:34→21:12)
[2019-08-05 15:29] LABS: GLUCOMETER DEV NAME(LOC) 5S.2A; GLUCOSE,POINT OF CARE 109 MG/DL (70-110)
[2019-08-05 15:29] LABS: GLUCOMETER DEV NAME(LOC) 5S.2A; GLUCOSE,POINT OF CARE 107 MG/DL (70-110)
[2019-08-05] MEDS: INSULIN LISPRO 100 UNITS/ML SQ PRN (18:02)
[2019-08-06] MEDS: IPRATROPIUM BROMIDE 0.5 MG/2.5 ML NEB SOLUTION NEB SCH ×4 (01:06→20:06)
[2019-08-06] MEDS: ALBUTEROL SULFATE 2.5 MG/0.5 ML NEB SOLUTION NEB SCH ×4 (01:06→20:06)
[2019-08-06 04:21] VITALS: BP 118/66
[2019-08-06] MEDS: NITROGLYCERIN 2% (1 GM=INCH) PACKET TP SCH ×4 (06:00→23:51)
[2019-08-06] MEDS: PIPERACILLIN/TAZO 3.375 GM/D5W 50 ML IV SCH ×4 (06:21→23:52)
[2019-08-06 06:54] LABS: BASOPHILS % (AUTO) 0.7 % (0.0-2.0); EOSINOPHILS % (AUTO) 3.9 % (1.0-6.0); HEMOGLOBIN 7.7 g/dL (13.5-17.5); LYMPHOCYTES # (AUTO) 1.9 K/uL (1.0-4.8); LYMPHOCYTES % (AUTO) 21.7 % (22.0-44.0); MEAN CORPUSCULAR HEMOGLOBIN 29.7 pg (26.0-34.0); MEAN CORPUSCULAR HGB CONC 33.3 G/dL (31.0-37.0); MEAN CORPUSCULAR VOLUME 89 fL (80-100); MONOCYTES # (AUTO) 0.7 K/uL (0.1-1.0); MONOCYTES % (AUTO) 7.9 % (2.0-9.0); NEUTROPHILS # (AUTO) 5.9 K/uL (1.8-7.7); NEUTROPHILS % (AUTO) 65.8 % (40.0-70.0); PLATELET COUNT (AUTO) 240 K/uL (150-450); RED BLOOD CELL COUNT(AUTO) 2.58 MIL/uL (4.50-5.90); RED CELL DISTRIBUTION WIDTH 16.8 % (11.5-14.5)
[2019-08-06 07:15] LABS: ALBUMIN 1.7 g/dL (3.4-5.0); BILIRUBIN,TOTAL 0.2 mg/dL (0.1-1.0); CALCIUM, TOTAL 8.5 mg/dL (8.8-10.5); CREATININE 1.8 mg/dL (0.60-1.30); POTASSIUM 3.5 mmol/L (3.5-5.1); TOTAL PROTEIN, SERUM 6.4 g/dL (6.4-8.2)
[2019-08-06 07:25] VITALS: BP 122/60
[2019-08-06 07:40] LABS: GLUCOMETER DEV NAME(LOC) 5N.2; GLUCOSE,POINT OF CARE 141 MG/DL (70-110)
[2019-08-06 07:40] LABS: GLUCOMETER DEV NAME(LOC) 5N.2; GLUCOSE,POINT OF CARE 115 MG/DL (70-110)
[2019-08-06] MEDS: PANTOPRAZOLE SODIUM 40 MG DR TABLET PO SCH (08:38)
[2019-08-06] MEDS: CARVEDILOL 6.25 MG TABLET PO SCH ×2 (08:38→21:00)
[2019-08-06] MEDS: LEVOFLOXACIN 250 MG TABLET PO SCH (08:38)
[2019-08-06] MEDS: TICAGRELOR 90 MG TABLET PO SCH ×2 (08:38→21:01)
[2019-08-06] MEDS: ASPIRIN 81 MG CHEWABLE TABLET PO SCH (08:38)
[2019-08-06] MEDS: LACTOBAC ACID/BULG/BIFID/THERM TABLET PO SCH ×2 (08:38→21:00)
[2019-08-06] MEDS: MULTIVITAMINS WITH MINERALS, THERAPEUTIC TABLET PO SCH (09:00)
[2019-08-06] MEDS ORDERED: BARIUM SULFATE 0.1% SUSPENSION 450 ML BOTTLE ONE ×2 (09:36→09:53)
[2019-08-06] MEDS ORDERED: GLUCAGON,HUMAN RECOMBINANT 1 MG VIAL IVP ONE (10:45)
[2019-08-06] MEDS: SOD FERRIC GLUC COMPLX/SUCROSE 125 MG in SODIUM CHLORIDE 0.9% 100 ML IV SCH (11:07)
[2019-08-06 11:19] VITALS: BP 117/68
[2019-08-06 11:44] LABS: GLUCOMETER DEV NAME(LOC) 5N.2; GLUCOSE,POINT OF CARE 150 MG/DL (70-110)
[2019-08-06 14:48] LABS: GLUCOMETER DEV NAME(LOC) 5S.2A; GLUCOSE,POINT OF CARE 125 MG/DL (70-110)
[2019-08-06 20:00] VITALS: BP 113/69
[2019-08-06] MEDS: INSULIN LISPRO 100 UNITS/ML SQ PRN (21:00)
[2019-08-06 23:40] VITALS: BP 115/58
[2019-08-07 00:57] LABS: GLUCOMETER DEV NAME(LOC) 5S.2A; GLUCOSE,POINT OF CARE 179 MG/DL (70-110)
[2019-08-07 00:57] LABS: GLUCOMETER DEV NAME(LOC) 5S.2A; GLUCOSE,POINT OF CARE 138 MG/DL (70-110)
[2019-08-07] MEDS: IPRATROPIUM BROMIDE 0.5 MG/2.5 ML NEB SOLUTION NEB SCH ×4 (02:00→20:00)
[2019-08-07] MEDS: ALBUTEROL SULFATE 2.5 MG/0.5 ML NEB SOLUTION NEB SCH ×4 (02:00→20:00)
[2019-08-07 03:50] VITALS: BP 126/69
[2019-08-07] MEDS: PIPERACILLIN/TAZO 3.375 GM/D5W 50 ML IV SCH ×3 (05:14→18:11)
[2019-08-07] MEDS: NITROGLYCERIN 2% (1 GM=INCH) PACKET TP SCH ×3 (05:14→18:00)
[2019-08-07] MEDS ORDERED: SODIUM CHLORIDE 0.9% 50 ML ONE (05:18)
[2019-08-07] MEDS: INSULIN LISPRO 100 UNITS/ML SQ PRN ×2 (06:30→13:05)
[2019-08-07 06:40] LABS: CALCIUM, TOTAL 8.4 mg/dL (8.8-10.5); CREATININE 1.94 mg/dL (0.60-1.30); POTASSIUM 3.4 mmol/L (3.5-5.1)
[2019-08-07 06:57] LABS: GLUCOMETER DEV NAME(LOC) 5S.2A; GLUCOSE,POINT OF CARE 150 MG/DL (70-110)
[2019-08-07 07:24] VITALS: BP 121/68
[2019-08-07] MEDS: ASPIRIN 81 MG CHEWABLE TABLET PO SCH (08:42)
[2019-08-07] MEDS: LACTOBAC ACID/BULG/BIFID/THERM TABLET PO SCH ×2 (08:42→21:44)
[2019-08-07] MEDS: CARVEDILOL 6.25 MG TABLET PO SCH ×2 (08:43→21:44)
[2019-08-07] MEDS: MULTIVITAMINS WITH MINERALS, THERAPEUTIC TABLET PO SCH (08:43)
[2019-08-07] MEDS: PANTOPRAZOLE SODIUM 40 MG DR TABLET PO SCH (08:43)
[2019-08-07] MEDS: TICAGRELOR 90 MG TABLET PO SCH ×2 (08:43→21:44)
[2019-08-07] MEDS: EPOETIN ALFA 10,000 UNITS/ML VIAL SQ SCH (08:44)
[2019-08-07] MEDS: LEVOFLOXACIN 250 MG TABLET PO SCH (08:44)
[2019-08-07 08:45] LABS: BASOPHILS % (AUTO) 0.6 % (0.0-2.0); EOSINOPHILS % (AUTO) 4.5 % (1.0-6.0); HEMATOCRIT 24.8 % (41-53); LYMPHOCYTES # (AUTO) 1.7 K/uL (1.0-4.8); LYMPHOCYTES % (AUTO) 18.6 % (22.0-44.0); MEAN CORPUSCULAR HEMOGLOBIN 29.5 pg (26.0-34.0); MEAN CORPUSCULAR HGB CONC 32.3 G/dL (31.0-37.0); MEAN CORPUSCULAR VOLUME 91 fL (80-100); MONOCYTES # (AUTO) 0.6 K/uL (0.1-1.0); MONOCYTES % (AUTO) 6.7 % (2.0-9.0); NEUTROPHILS # (AUTO) 6.5 K/uL (1.8-7.7); NEUTROPHILS % (AUTO) 69.6 % (40.0-70.0); PLATELET COUNT (AUTO) 243 K/uL (150-450); RED BLOOD CELL COUNT(AUTO) 2.71 MIL/uL (4.50-5.90); RED CELL DISTRIBUTION WIDTH 17.8 % (11.5-14.5)
[2019-08-07 11:05] VITALS: BP 132/77
[2019-08-07] MEDS ORDERED: SODIUM CHLORIDE 0.9% 500 ML IV ONE (11:06)
[2019-08-07] MEDS: SOD FERRIC GLUC COMPLX/SUCROSE 125 MG in SODIUM CHLORIDE 0.9% 100 ML IV SCH (11:17)
[2019-08-07 12:04] LABS: GLUCOMETER DEV NAME(LOC) 5S.1; GLUCOSE,POINT OF CARE 111 MG/DL (70-110)
[2019-08-07 14:54] LABS: GLUCOMETER DEV NAME(LOC) 5N.2; GLUCOSE,POINT OF CARE 161 MG/DL (70-110)
[2019-08-07 16:08] LABS: APPEARANCE,URINE CLEAR (CLEAR); BILIRUBIN,URINE NEGATIVE (NEGATIVE); GLUCOSE, URINE (UA) NEGATIVE (NEGATIVE); KETONES,URINE NEGATIVE (NEGATIVE); LEUKOCYTE ESTERASE ,URINE SMALL (NEGATIVE); NITRATE,URINE NEGATIVE (NEGATIVE); OCCULT BLOOD,URINE MODERATE (NEGATIVE); PROTEIN,URINE POS 1+ (NEGATIVE); UROBILINOGEN,URINE 0.2 mg/dL (<=1.0)
[2019-08-07 16:10] LABS: CREATININE,URINE RANDOM 103.4 mg/dL (30.0-125.0); SODIUM,URINE RANDOM 67 mmol/l (20-110); UREA NITROGEN,URINE RANDOM 837 mg/dL (350-1000)
[2019-08-07 16:17] VITALS: BP 135/72
[2019-08-07 16:30] LABS: RBC,URINE 0-2 /HPF (0-2)
[2019-08-07 16:31] LABS: BACTERIA,URINE Few /HPF (None Seen); SQUAMOUS EPITHELIAL CELL,UR Few /LPF (None Seen)
[2019-08-07 20:22] VITALS: BP 127/70
[2019-08-08] VITALS (7 sets, daily range): BP systolic 114–132; BP diastolic 65–80
[2019-08-08] MEDS: PIPERACILLIN/TAZO 3.375 GM/D5W 50 ML IV SCH ×3 (00:14→11:28)
[2019-08-08] MEDS: NITROGLYCERIN 2% (1 GM=INCH) PACKET TP SCH ×4 (00:14→17:41)
[2019-08-08] MEDS: ALBUTEROL SULFATE 2.5 MG/0.5 ML NEB SOLUTION NEB SCH ×4 (02:00→19:43)
[2019-08-08] MEDS: IPRATROPIUM BROMIDE 0.5 MG/2.5 ML NEB SOLUTION NEB SCH ×4 (02:00→19:44)
[2019-08-08 07:52] LABS: CALCIUM, TOTAL 8.3 mg/dL (8.8-10.5); CREATININE 1.54 mg/dL (0.60-1.30); POTASSIUM 3.8 mmol/L (3.5-5.1)
[2019-08-08] MEDS: LACTOBAC ACID/BULG/BIFID/THERM TABLET PO SCH ×2 (08:23→20:28)
[2019-08-08] MEDS: MULTIVITAMINS WITH MINERALS, THERAPEUTIC TABLET PO SCH (08:23)
[2019-08-08] MEDS: CARVEDILOL 6.25 MG TABLET PO SCH ×2 (08:23→20:28)
[2019-08-08] MEDS: TICAGRELOR 90 MG TABLET PO SCH ×2 (08:23→20:28)
[2019-08-08] MEDS: PANTOPRAZOLE SODIUM 40 MG DR TABLET PO SCH (08:23)
[2019-08-08] MEDS: ASPIRIN 81 MG CHEWABLE TABLET PO SCH (08:23)
[2019-08-08] MEDS ORDERED: SODIUM CL IRRIG SOLN BOTTLE 250 ML IRRIG ONE (11:07)
[2019-08-08] MEDS: LEVOFLOXACIN 250 MG TABLET PO SCH (17:36)
[2019-08-09] MEDS: IPRATROPIUM BROMIDE 0.5 MG/2.5 ML NEB SOLUTION NEB SCH ×4 (02:00→20:06)
[2019-08-09] MEDS: ALBUTEROL SULFATE 2.5 MG/0.5 ML NEB SOLUTION NEB SCH ×4 (02:00→20:06)
[2019-08-09 04:16] VITALS: BP 113/53
[2019-08-09 05:33] LABS: GLUCOMETER DEV NAME(LOC) 5S.2A; GLUCOSE,POINT OF CARE 131 MG/DL (70-110)
[2019-08-09 05:33] LABS: GLUCOMETER DEV NAME(LOC) 5S.2A; GLUCOSE,POINT OF CARE 112 MG/DL (70-110)
[2019-08-09 05:33] LABS: GLUCOMETER DEV NAME(LOC) 5S.2A; GLUCOSE,POINT OF CARE 97 MG/DL (70-110)
[2019-08-09 05:34] LABS: GLUCOMETER DEV NAME(LOC) 5S.2A; GLUCOSE,POINT OF CARE 178 MG/DL (70-110)
[2019-08-09 05:34] LABS: GLUCOMETER DEV NAME(LOC) 5S.2A; GLUCOSE,POINT OF CARE 155 MG/DL (70-110)
[2019-08-09 05:34] LABS: GLUCOMETER DEV NAME(LOC) 5S.2A; GLUCOSE,POINT OF CARE 99 MG/DL (70-110)
[2019-08-09] MEDS: NITROGLYCERIN 2% (1 GM=INCH) PACKET TP SCH ×5 (05:59→23:50)
[2019-08-09 07:19] VITALS: BP 107/71
[2019-08-09 07:40] LABS: BASOPHILS % (AUTO) 0.5 % (0.0-2.0); EOSINOPHILS % (AUTO) 3.1 % (1.0-6.0); HEMATOCRIT 24.6 % (41-53); LYMPHOCYTES # (AUTO) 1.7 K/uL (1.0-4.8); LYMPHOCYTES % (AUTO) 19.6 % (22.0-44.0); MEAN CORPUSCULAR HEMOGLOBIN 29.6 pg (26.0-34.0); MEAN CORPUSCULAR HGB CONC 32.5 G/dL (31.0-37.0); MEAN CORPUSCULAR VOLUME 91 fL (80-100); MONOCYTES # (AUTO) 0.6 K/uL (0.1-1.0); NEUTROPHILS # (AUTO) 5.9 K/uL (1.8-7.7); NEUTROPHILS % (AUTO) 69.8 % (40.0-70.0); PLATELET COUNT (AUTO) 242 K/uL (150-450); RED CELL DISTRIBUTION WIDTH 20.9 % (11.5-14.5)
[2019-08-09 07:59] LABS: ALBUMIN 1.9 g/dL (3.4-5.0); BILIRUBIN,TOTAL 0.3 mg/dL (0.1-1.0); CALCIUM, TOTAL 8.2 mg/dL (8.8-10.5); CREATININE 1.6 mg/dL (0.60-1.30); POTASSIUM 3.4 mmol/L (3.5-5.1); TOTAL PROTEIN, SERUM 6.9 g/dL (6.4-8.2)
[2019-08-09] MEDS: CARVEDILOL 6.25 MG TABLET PO SCH (08:13)
[2019-08-09] MEDS: LACTOBAC ACID/BULG/BIFID/THERM TABLET PO SCH ×2 (08:13→20:10)
[2019-08-09] MEDS: ASPIRIN 81 MG CHEWABLE TABLET PO SCH (08:13)
[2019-08-09] MEDS: MULTIVITAMINS WITH MINERALS, THERAPEUTIC TABLET PO SCH (08:13)
[2019-08-09] MEDS: TICAGRELOR 90 MG TABLET PO SCH ×2 (08:13→20:10)
[2019-08-09] MEDS: PANTOPRAZOLE SODIUM 40 MG DR TABLET PO SCH (08:13)
[2019-08-09] MEDS: LEVOFLOXACIN 250 MG TABLET PO SCH (08:14)
[2019-08-09] MEDS ORDERED: LEVOFLOXACIN 250 MG TABLET PO SCH (09:00)
[2019-08-09] MEDS ORDERED: POTASSIUM CHLORIDE 10 MEQ ER TABLET PO ONE (10:30)
[2019-08-09 11:31] VITALS: BP 120/80
[2019-08-09 12:13] LABS: GLUCOMETER DEV NAME(LOC) 5S.2A; GLUCOSE,POINT OF CARE 123 MG/DL (70-110)
[2019-08-09 12:13] LABS: GLUCOMETER DEV NAME(LOC) 5S.2A; GLUCOSE,POINT OF CARE 107 MG/DL (70-110)
[2019-08-09 15:19] VITALS: BP 120/68
[2019-08-09] MEDS: MetroNIDAZOLE 500 MG TABLET PO SCH ×2 (17:31→20:11)
[2019-08-09 18:06] LABS: GLUCOMETER DEV NAME(LOC) 5S.2A; GLUCOSE,POINT OF CARE 127 MG/DL (70-110)
[2019-08-09 19:15] VITALS: BP 106/65
[2019-08-09] MEDS: CARVEDILOL 12.5 MG TABLET PO SCH (20:11)
[2019-08-09 21:57] LABS: GLUCOMETER DEV NAME(LOC) 5S.2A; GLUCOSE,POINT OF CARE 126 MG/DL (70-110)
[2019-08-09 23:52] VITALS: BP 125/78
[2019-08-10] MEDS: IPRATROPIUM BROMIDE 0.5 MG/2.5 ML NEB SOLUTION NEB SCH ×4 (02:09→20:00)
[2019-08-10] MEDS: ALBUTEROL SULFATE 2.5 MG/0.5 ML NEB SOLUTION NEB SCH ×4 (02:09→20:00)
[2019-08-10 04:57] VITALS: BP 125/77
[2019-08-10] MEDS: NITROGLYCERIN 2% (1 GM=INCH) PACKET TP SCH ×3 (05:51→18:00)
[2019-08-10 06:36] LABS: BASOPHILS % (AUTO) 0.4 % (0.0-2.0); EOSINOPHILS % (AUTO) 3.2 % (1.0-6.0); HEMATOCRIT 24.4 % (41-53); HEMOGLOBIN 7.9 g/dL (13.5-17.5); LYMPHOCYTES # (AUTO) 1.7 K/uL (1.0-4.8); LYMPHOCYTES % (AUTO) 21.3 % (22.0-44.0); MEAN CORPUSCULAR HEMOGLOBIN 29.8 pg (26.0-34.0); MEAN CORPUSCULAR HGB CONC 32.2 G/dL (31.0-37.0); MEAN CORPUSCULAR VOLUME 93 fL (80-100); MONOCYTES # (AUTO) 0.7 K/uL (0.1-1.0); NEUTROPHILS # (AUTO) 5.5 K/uL (1.8-7.7); NEUTROPHILS % (AUTO) 67.1 % (40.0-70.0); PLATELET COUNT (AUTO) 255 K/uL (150-450); RED BLOOD CELL COUNT(AUTO) 2.64 MIL/uL (4.50-5.90); RED CELL DISTRIBUTION WIDTH 21.5 % (11.5-14.5)
[2019-08-10 06:40] LABS: GLUCOMETER DEV NAME(LOC) 5N.1; GLUCOSE,POINT OF CARE 138 MG/DL (70-110)
[2019-08-10 06:55] LABS: C-REACTIVE PROTEIN QUANT 3.12 mg/dL (0.00-0.30); CALCIUM, TOTAL 8.6 mg/dL (8.8-10.5); CREATININE 1.67 mg/dL (0.60-1.30); MAGNESIUM 1.6 mg/dL (1.80-2.40); PHOSPHORUS 2.3 mg/dL (2.5-4.9); POTASSIUM 3.6 mmol/L (3.5-5.1)
[2019-08-10 07:04] VITALS: BP 116/75
[2019-08-10] MEDS: EPOETIN ALFA 10,000 UNITS/ML VIAL SQ SCH (08:05)
[2019-08-10] MEDS: LEVOFLOXACIN 250 MG TABLET PO SCH (08:05)
[2019-08-10] MEDS: MetroNIDAZOLE 500 MG TABLET PO SCH ×3 (08:06→21:03)
[2019-08-10] MEDS: CARVEDILOL 12.5 MG TABLET PO SCH ×2 (08:06→21:03)
[2019-08-10] MEDS: ASPIRIN 81 MG CHEWABLE TABLET PO SCH (08:06)
[2019-08-10] MEDS: PANTOPRAZOLE SODIUM 40 MG DR TABLET PO SCH (08:06)
[2019-08-10] MEDS: MULTIVITAMINS WITH MINERALS, THERAPEUTIC TABLET PO SCH (08:06)
[2019-08-10] MEDS: TICAGRELOR 90 MG TABLET PO SCH ×2 (08:06→21:03)
[2019-08-10] MEDS: LACTOBAC ACID/BULG/BIFID/THERM TABLET PO SCH ×2 (08:06→21:00)
[2019-08-10 08:10] LABS: GLUCOMETER DEV NAME(LOC) 5N.2; GLUCOSE,POINT OF CARE 127 MG/DL (70-110)
[2019-08-10 08:41] LABS: ERYTHROCYTE SEDIMENTATION RATE 91 MM/HR (0-15)
[2019-08-10] MEDS ORDERED: MAGNESIUM SULFATE 2 GM in DEXTROSE 5%-WATER 50 ML IV ONE (08:45)
[2019-08-10] MEDS: POTASSIUM PHOS/SODIUM PHOS MIXTURE 1 POWDER PACKET PO SCH ×2 (10:53→21:04)
[2019-08-10 11:01] VITALS: BP 110/66
[2019-08-10 11:40] LABS: GLUCOMETER DEV NAME(LOC) 5N.1; GLUCOSE,POINT OF CARE 137 MG/DL (70-110)
[2019-08-10 15:54] VITALS: BP 104/63
[2019-08-10 18:13] LABS: GLUCOMETER DEV NAME(LOC) 5N.1; GLUCOSE,POINT OF CARE 125 MG/DL (70-110)
[2019-08-10 20:25] VITALS: BP 112/70
[2019-08-10 20:37] VITALS: BP 112/70
[2019-08-11 00:11] VITALS: BP 110/68
[2019-08-11] MEDS: NITROGLYCERIN 2% (1 GM=INCH) PACKET TP SCH ×2 (01:21→06:18)
[2019-08-11] MEDS: IPRATROPIUM BROMIDE 0.5 MG/2.5 ML NEB SOLUTION NEB SCH ×2 (02:00→08:00)
[2019-08-11] MEDS: ALBUTEROL SULFATE 2.5 MG/0.5 ML NEB SOLUTION NEB SCH ×2 (02:00→08:00)
[2019-08-11 06:44] LABS: GLUCOMETER DEV NAME(LOC) 5S.2A; GLUCOSE,POINT OF CARE 112 MG/DL (70-110)
[2019-08-11 07:13] LABS: ALBUMIN 1.9 g/dL (3.4-5.0); CALCIUM, TOTAL 8.1 mg/dL (8.8-10.5); CREATININE 1.68 mg/dL (0.60-1.30); MAGNESIUM 1.8 mg/dL (1.80-2.40); PHOSPHORUS 2.7 mg/dL (2.5-4.9); POTASSIUM 3.5 mmol/L (3.5-5.1)
[2019-08-11] MEDS ORDERED: CARV12 PO (07:33)
[2019-08-11] MEDS ORDERED: ASPI81TA39 PO (07:33)
[2019-08-11] MEDS ORDERED: LEVO-72 PO (07:34)
[2019-08-11] MEDS ORDERED: METR500 PO (07:34)
[2019-08-11] MEDS ORDERED: TICA90TA PO (07:35)
[2019-08-11 07:49] VITALS: BP 112/69
[2019-08-11] MEDS: MetroNIDAZOLE 500 MG TABLET PO SCH (08:40)
[2019-08-11] MEDS: PANTOPRAZOLE SODIUM 40 MG DR TABLET PO SCH (08:40)
[2019-08-11] MEDS: LACTOBAC ACID/BULG/BIFID/THERM TABLET PO SCH (08:40)
[2019-08-11] MEDS: LEVOFLOXACIN 250 MG TABLET PO SCH (08:40)
[2019-08-11] MEDS: MULTIVITAMINS WITH MINERALS, THERAPEUTIC TABLET PO SCH (08:40)
[2019-08-11] MEDS: TICAGRELOR 90 MG TABLET PO SCH (08:41)
[2019-08-11] MEDS: ASPIRIN 81 MG CHEWABLE TABLET PO SCH (08:41)
[2019-08-11] MEDS: CARVEDILOL 12.5 MG TABLET PO SCH (08:41)
== END 2019-08-11 11:15 | disposition home health service (06) | DRG 246 ==
LOC: EMS 09:21 → 4E 14:02 → ICU 07-27 03:42 → 5S 07-27 18:35 → ICU 07-30 10:55 → 5S 07-31 20:55
PROVIDERS: ADMIT Internal Medicine; ATTEND Internal Medicine
PROC: 4A023N7 Measurement of Cardiac Sampling and Pressure, Left Heart, Percutaneous Approach (ICD-10-PCS; principal; 2019-07-30)
PROC: 027135Z Dilation of Coronary Artery, Two Arteries with Two Drug-eluting Intraluminal Devices, Percutaneous Approach (ICD-10-PCS; 2019-07-30)
PROC: B2111ZZ Fluoroscopy of Multiple Coronary Arteries using Low Osmolar Contrast (ICD-10-PCS; 2019-07-30)
PROC: 30233N1 Transfusion of Nonautologous Red Blood Cells into Peripheral Vein, Percutaneous Approach (ICD-10-PCS; 2019-08-04)
PROC: 0DB68ZX Excision of Stomach, Via Natural or Artificial Opening Endoscopic, Diagnostic (ICD-10-PCS; 2019-08-05)
DX: I25.10 Atherosclerotic heart disease of native coronary artery without angina pectoris (principal); K29.01 Acute gastritis with bleeding; I50.41 Acute combined systolic (congestive) and diastolic (congestive) heart failure; N17.0 Acute kidney failure with tubular necrosis; I13.0 Hypertensive heart and chronic kidney disease with heart failure and stage 1 through stage 4 chronic kidney disease, or unspecified chronic kidney disease; E11.52 Type 2 diabetes mellitus with diabetic peripheral angiopathy with gangrene; E44.1 Mild protein-calorie malnutrition; M86.8X7 Other osteomyelitis, ankle and foot; E87.0 Hyperosmolality and hypernatremia; J91.8 Pleural effusion in other conditions classified elsewhere; I25.5 Ischemic cardiomyopathy; E11.69 Type 2 diabetes mellitus with other specified complication; E87.6 Hypokalemia; E78.5 Hyperlipidemia, unspecified; E86.0 Dehydration; E11.621 Type 2 diabetes mellitus with foot ulcer; N18.3 Chronic kidney disease, stage 3 (moderate); E78.00 Pure hypercholesterolemia, unspecified; D64.9 Anemia, unspecified; K29.80 Duodenitis without bleeding; L98.499 Non-pressure chronic ulcer of skin of other sites with unspecified severity; E11.22 Type 2 diabetes mellitus with diabetic chronic kidney disease; J44.9 Chronic obstructive pulmonary disease, unspecified; E83.42 Hypomagnesemia; E11.40 Type 2 diabetes mellitus with diabetic neuropathy, unspecified; B96.5 Pseudomonas (aeruginosa) (mallei) (pseudomallei) as the cause of diseases classified elsewhere; Z79.82 Long term (current) use of aspirin; Z68.24 Body mass index [BMI] 24.0-24.9, adult; E83.39 Other disorders of phosphorus metabolism; D49.6 Neoplasm of unspecified behavior of brain; Z89.512 Acquired absence of left leg below knee; Z95.5 Presence of coronary angioplasty implant and graft; Z87.891 Personal history of nicotine dependence; Z79.84 Long term (current) use of oral hypoglycemic drugs; Z79.899 Other long term (current) drug therapy; Z89.511 Acquired absence of right leg below knee
CPT/HCPCS: 36600; 71250; 73718; 74176; 76770; 82271; 82570; 82805; 83540; 83550; 83605; 83735; 84100; 84300; 84540; 85007; 85651; 86140; 86850; 86900; 86901; 86920; 87040; 87070; 87081; 87205; 88305; 88312; 88313; 92920; 92921; 92928; 92929; 93005; 93306; 93925; 93971; 94640; 97162; 97530; C9113; G0378; J0696; J0885; J1610; J1644; J1940; J2060; J2250; J2543; J2704; J2916; J3010; J3370; J3475; J3490; J7030; J7040; J7050; J7060; P9016; Q9967